=== PATIENT | male | born 1965 | race Caucasian/White ===

== ENCOUNTER 2022-10-17 16:49 | Emergency (ER) | payer OTHER | END 2022-10-17 18:03 | disposition home or self-care (01) | LOC: VM.ED 16:49 | DX: S80.12XA Contusion of left lower leg, initial encounter (principal); S70.02XA Contusion of left hip, initial encounter; E11.9 Type 2 diabetes mellitus without complications; I10 Essential (primary) hypertension; Z79.84 Long term (current) use of oral hypoglycemic drugs; W19.XXXA Unspecified fall, initial encounter | CPT/HCPCS: 99283 ==